=== PATIENT | female | born 2000 | race African-American/Black ===

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

== ENCOUNTER 2020-01-07 14:43 | Emergency (ER) | payer SELFPAY ==
--- NOTE | 2020-01-07 15:04 | ER Document Report ---
ED Medical Screen (RME) - General Chief Complaint: OB Problem (<20wks) Stated Complaint: ABDOMINAL PAIN Time Seen by Provider: 01/07/20 15:00 Mode of Arrival: Ambulatory Information source: Patient Notes: 19-year-old female presented to ED for pain during early . She states she was seen in [place] 3 weeks ago and told she was and they could not rule out an ectopic . Last menstrual period was November 21. She does have her paperwork with her from the hospital in [place]. She states she is having increased pain on her left side of her pelvis. She does not smoke drink or do any drugs. She is 1 para 0. She denies any bleeding at any time. I have greeted and performed a rapid initial assessment of this patient. A comprehensive ED assessment and evaluation of the patient, analysis of test results and completion of medical decision making process will be conducted by an additional ED providers. TRAVEL OUTSIDE OF THE [place] IN LAST 30 DAYS: No - Related Data Allergies/Adverse Reactions: No Known Drug Allergies Allergy (Verified 04/01/19 13:37) Physical Exam - Vital signs Vitals: Temp Pulse Resp BP Pulse Ox 98.5 F 77 18 124/67 100 01/07/20 14:48 01/07/20 14:48 01/07/20 14:48 01/07/20 14:48 01/07/20 14:48 Course - Vital Signs Vital signs: Temp Pulse Resp BP Pulse Ox 98.5 F 77 18 124/67 100 01/07/20 14:48 01/07/20 14:48 01/07/20 14:48 01/07/20 14:48 01/07/20 14:48
[2020-01-07 16:11] LABS: ABSOLUTE BASOPHILS # (AUTO) 0.1 10^3/uL (0.0-0.2); ABSOLUTE EOSINOPHILS # (AUTO) 0.1 10^3/uL (0.0-0.6); ABSOLUTE MONOCYTES (AUTO) 0.8 10^3/uL (0.1-1.4); ABSOLUTE NEUT (AUTO) 7.5 10^3/uL (1.7-8.2); BASOPHILS % (AUTO) 0.5 % (0-2); HEMATOCRIT 38.2 % (36.0-47.0); HEMOGLOBIN 13.2 g/dL (12.0-15.5); LYMPHOCYTES % (AUTO) 19.2 % (13-45); MEAN CORPUSCULAR HEMOGLOBIN 32.4 pg (27.0-33.4); MEAN CORPUSCULAR HGB CONC 34.6 g/dL (32.0-36.0); MEAN CORPUSCULAR VOLUME 94 fl (80-97); PLATELET COUNT 254 10^3/uL (150-450); RED BLOOD COUNT 4.08 10^6/uL (3.72-5.28); RED CELL DISTRIBUTION WIDTH 12.4 % (11.5-14.0); SEGMENTED NEUTROPHILS % (AUTO) 71.3 % (42-78); TOTAL CELLS COUNTED % (AUTO) 100 %; WHITE BLOOD COUNT 10.6 10^3/uL (4.0-10.5)
[2020-01-07 16:35] LABS: ALBUMIN 4.2 g/dL (3.7-5.6); ALKALINE PHOSPHATASE 55 U/L (50-135); ANION GAP 6 (5-19); ASPARTATE AMINO TRANSFERASE 26 U/L (5-30); BILIRUBIN,TOTAL 0.4 mg/dL (0.2-1.3); BLOOD UREA NITROGEN 9 mg/dL (7-20); CALCIUM 9.4 mg/dL (8.4-10.2); CARBON DIOXIDE 26 mmol/L (22-30); CHLORIDE 101 mmol/L (98-107); GLUCOSE 83 mg/dL (75-110); POTASSIUM 4.1 mmol/L (3.6-5.0)
--- NOTE | 2020-01-07 16:36 | ER Document Report ---
ED General - General Chief Complaint: OB Problem (<20wks) Stated Complaint: ABDOMINAL PAIN Time Seen by Provider: 01/07/20 15:00 Mode of Arrival: Ambulatory TRAVEL OUTSIDE OF THE [place] IN LAST 30 DAYS: No - HPI Patient complains to provider of: pelvic pain Notes: Well-appearing 19-year-old female presents with 3 to 4 weeks history of sharp left pelvic pain. Seen in outside emergency department diagnosed with possible ectopic or left ovarian cyst. Patient never followed up as continued symptoms. Denies dizziness lightheadedness nausea vomiting diarrhea or other symptoms. Eating drinking acting appropriately had a normal bowel movement this morning - Related Data Allergies/Adverse Reactions: No Known Drug Allergies Allergy (Verified 01/07/20 15:02) Home Medications: PNV Past Medical History - General Information source: Patient - Social History Smoking Status: Never Smoker Chew tobacco use (# tins/day): No Frequency of alcohol use: None Drug Abuse: None Family History: None Patient has homicidal ideation: No Review of Systems - Review of Systems Notes: REVIEW OF SYSTEMS: CONSTITUTIONAL: -fevers, -chills EENT: -eye pain, -difficulty swallowing, -nasal congestion CARDIOVASCULAR: -chest pain, -syncope. RESPIRATORY: -cough, -SOB GASTROINTESTINAL: positive abdominal pain, -nausea, -vomiting, -diarrhea GENITOURINARY: -dysuria, -hematuria MUSCULOSKELETAL: -back pain, -neck pain SKIN: -rash or skin lesions. HEMATOLOGIC: -easy bruising or bleeding. LYMPHATIC: -swollen, enlarged glands. NEUROLOGICAL: -altered mental status or loss of consciousness, -headache, - neurologic symptoms PSYCHIATRIC: -anxiety, -depression. ALL OTHER SYSTEMS REVIEWED AND NEGATIVE. Physical Exam - Vital signs Vitals: Temp Pulse Resp BP Pulse Ox 98.5 F 77 18 124/67 100 01/07/20 14:48 01/07/20 14:48 01/07/20 14:48 01/07/20 14:48 01/07/20 14:48 - Notes Notes: PHYSICAL EXAMINATION: GENERAL: Well-appearing, well-nourished and in no acute distress. HEAD: Atraumatic, normocephalic. EYES: Pupils equal round, sclera anicteric, conjunctiva are normal. ENT: Surgical mask in place. NECK: Normal range of motion, LUNGS: No respiratory Distress, normal chest rise EXTREMITIES: Normal range of motion, No cyanosis. NEUROLOGICAL: Cranial nerves grossly intact. Normal speech, PSYCH: Normal mood, normal affect. SKIN: Warm, Dry, Course - Re-evaluation Re-evalutation: 01/07/20 17:31 Well-appearing female no acute distress, benign physical exam. Patient is approximately 5 weeks smelling some pain on her left side. Patient has never had a confirmation ultrasound performed does not know her blood type. Patient will be sent for transvaginal ultrasound along with type, denies bleeding or symptoms 01/07/20 18:03 Patient ultrasound finds single intrauterine with normal heart rate approximately 6 weeks. No other gross abnormality. Patient is pain-free. Will be discharged home given referral to local [facility] given strict return precautions - Vital Signs Vital signs: Temp Pulse Resp BP Pulse Ox 98.5 F 77 18 124/67 100 01/07/20 14:48 01/07/20 14:48 01/07/20 14:48 01/07/20 14:48 01/07/20 14:48 - Laboratory Result Diagrams: 01/07/20 15:30 01/07/20 15:30 Laboratory results interpreted by me: 01/07/20 01/07/20 15:30 15:30 WBC 10.6 H Sodium 133.3 L Beta HCG, Quant 24270.00 H Discharge - Discharge Clinical Impression: Qualifiers: Weeks of gestation: less than 8 weeks Qualified Code(s): Z3A.01 - Less than 8 weeks gestation of Condition: Stable Disposition: HOME, SELF-CARE Instructions: Pelvic Pain in ([facility]), Pelvic Pain in and Round Ligament Pain ([facility]) Referrals: [facility] [Provider Group] - Follow up as needed [facility] [Provider Group] - Follow up as needed
--- NOTE | 2020-01-07 18:02 | RADIOLOGY REPORT (SQ) ---
EXAM DESCRIPTION: U/S OB TRANSVAG W/DOPPLER IMAGES COMPLETED DATE/TIME: 01/07/2020 5:18 pm REASON FOR STUDY: Early with pelvic pain COMPARISON: None. TECHNIQUE: Transvaginal static and realtime grayscale images acquired of the pelvis. Additional osmani cted spectral and color Doppler images recorded. All images stored on PACs. bHCG: Not available. CLINICAL DATES: 6 weeks, 4 days LIMITATIONS: None. FINDINGS: FETUS: Single Living intrauterine . ULTRASOUND EGA: 6 weeks, 3 days ULTRASOUND MINOO: 08/29/2020 EFW: Not applicable less than 20 weeks. CRL: 5.7 mm FHR: 115 beats per minute. SURVEY: Too early to assess. AMNIOTIC FLUID: Adequate amount. PLACENTA: Not yet developed due to early gestation. SUBCHORIONIC BLEED: No. SIZE OF BLEED: Not applicable. UTERUS: No masses. No anomalies. CERVICAL LENGTH: 2.2 cm Closed. RIGHT ADNEXA: Ovary not identified due to poor acoustical window. No adnexal free fluid. No adnexal masses. LEFT ADNEXA: Normal ovary with normal vascular flow. No adnexal free fluid. No adnexal masses. FREE FLUID: Simple appearing free fluid is seen adjacent to the right adnexa and within the pelvic cu l-de-sac. OTHER: No other significant finding. IMPRESSION: LIVING INTRAUTERINE . EGA 6 weeks, 3 days Trimester of : First trimester - 0 to 13 weeks. TECHNICAL DOCUMENTATION: JOB ID: [id number] 2010 [employer]- All Rights Reserved rev-10/12 Reading location - IP/workstation name: [email or web address]
[2020-01-07 18:44] VITALS: BP 116/62
== END 2020-01-07 18:20 | disposition home or self-care (01) ==
LOC: ER 14:43
DX: O26.891 Other specified pregnancy related conditions, first trimester (principal); R10.2 Pelvic and perineal pain; Z79.899 Other long term (current) drug therapy; Z3A.01 Less than 8 weeks gestation of pregnancy
CPT/HCPCS: 36415; 76817; 80053; 84702; 85025; 93976; 99284

== ENCOUNTER → 2020-01-30 | Outpatient (CLI) | payer SELFPAY ==
--- NOTE | 2020-01-30 18:19 | RADIOLOGY REPORT (SQ) ---
EXAM DESCRIPTION: U/S [id number] TRNABD 1GES W/ODOP IMAGES COMPLETED DATE/TIME: 01/30/2020 3:27 pm REASON FOR STUDY: Z34.01 ENCNTR FOR SUPRVSN OF NORMAL FIRST PREG, FIRST TRIMESTER Z34.01 ENCNTR FOR SUPRVSN OF NORMAL FIRST PREG, FIRST TRIMES COMPARISON: None. TECHNIQUE: Transabdominal static and realtime grayscale images acquired of the pelvis. Additional se lected spectral and color Doppler images recorded. All images stored on PACs. bHCG: Not provided. CLINICAL DATES: 9 week 6 day LIMITATIONS: None. FINDINGS: FETUS: Single Living intrauterine . ULTRASOUND EGA: 9 week 5 day ULTRASOUND MINOO: 08/29/2020 EFW: Not applicable less than 20 weeks. CRL: 2.9 cm FHR: 144 beats per minute. SURVEY: Too early to assess. AMNIOTIC FLUID: Adequate amount. PLACENTA: Developing without evidence of bleed. SUBCHORIONIC BLEED: No. SIZE OF BLEED: Not applicable. UTERUS: No masses. No anomalies. CERVICAL LENGTH: 2.5 cm Closed. RIGHT ADNEXA: Ovary not identified due to poor acoustical window. No adnexal free fluid. No adnexal masses. LEFT ADNEXA: Ovary not identified due to poor acoustical window. No adnexal free fluid. No adnexal masses. FREE FLUID: None. OTHER: No other significant finding. IMPRESSION: LIVING INTRAUTERINE . EGA 9 week 5 day Trimester of : First trimester - 0 to 13 weeks. TECHNICAL DOCUMENTATION: JOB ID: [id number] 2010 [employer]- All Rights Reserved Reading location - IP/workstation name: [email or web address]
== END ==
LOC: RAD 15:00
PROVIDERS: ATTEND Nurse Practitioner Family
DX: Z34.01 Encounter for supervision of normal first pregnancy, first trimester (principal); Z3A.09 9 weeks gestation of pregnancy
CPT/HCPCS: 76801